=== PATIENT | male | born 1975 | race Caucasian/White ===

== ENCOUNTER 2016-04-17 18:10 | Inpatient (IN) | payer OTHER ==
[~2016-04-17] VITALS: Ht 172.7 cm; Wt 82.1 kg
[2016-04-17] MEDS ORDERED: ACETAMINOPHEN 325 MG TAB PO ONE ×2 (18:25→18:30)
[2016-04-17 18:55] LABS: Basophils # (auto) 0 uL; Basophils % (auto) 0.2 % (0.0-2.0); Eosinophils # (auto) 0 uL; Eosinophils % (auto) 0.2 % (0.0-7.0); Hematocrit 43.3 % (41.0-53.0); Hemoglobin 14.6 g/dL (13.5-17.5); Lymphocytes # (auto) 0.6 uL; Lymphocytes % (auto) 6.4 % (10.0-50.0); Mean Corpuscular Hemoglobin 30.2 pg (28.0-32.0); Mean Corpuscular Hgb Conc. 33.7 g/dL (32.0-36.0); Mean Corpuscular Volume 89.7 fL (80.0-100.0); Mean Platelet Volume 6.9 fL (7.4-10.4); Monocytes # (auto) 0.6 uL; Monocytes % (auto) 6.5 % (0.0-12.0); Neutrophils # (auto) 8.3 uL; Neutrophils % (auto) 86.7 % (37.0-80.0); Platelet Count (auto) 303 10^3/uL (140-450); White Blood Cell 9.6 10^3/uL (4.4-10.8)
[2016-04-17 19:13] LABS: Albumin 4.4 g/dL (3.4-5.0); BUN/Creatinine Ratio 15.2; Bilirubin, Total 0.4 mg/dL (0.2-1.0); Calcium 9.3 mg/dL (8.5-10.1); Potassium 3.8 mmol/L (3.5-5.1); Total Protein 7.9 g/dL (6.4-8.2)
[2016-04-17] MEDS ORDERED: LEVOFLOXACIN 500MG 100 ML IV ONE (19:15)
[2016-04-17] MEDS ORDERED: SODIUM CHLORIDE 0.9% 500 ML IV ONE (19:15)
[2016-04-17] MEDS ORDERED: methylPREDNISolone SOD SUCC 125 MG/2 ML VL IV ONE (19:15)
[2016-04-17] MEDS: SODIUM CHLORIDE 0.9% 1,000 ML IV SCH (19:50)
[2016-04-17] MEDS ORDERED: MORPHINE SULF INJ 2 MG/ML SYRINGE 1ML IV PRN ×2 (20:00)
[2016-04-17] MEDS ORDERED: LORazepam 0.5 MG TAB PO PRN (20:00)
[2016-04-17] MEDS ORDERED: ALBUTEROL SULF 2.5 MG/0.5ML(0.5%) NEB SOLN NEB PRN (20:00)
[2016-04-17] MEDS ORDERED: HYDROcodone-ACET 5/325MG TAB PO PRN (20:00)
[2016-04-17] MEDS ORDERED: LACTULOSE 20Gm/30ML SOLN PO PRN (20:00)
[2016-04-17] MEDS ORDERED: TEMAZEPAM 15 MG CAP PO PRN (20:00)
[2016-04-17] MEDS ORDERED: PROMETHAZINE HCL 25 MG/ML 1ML IV PRN (20:00)
[2016-04-17] MEDS ORDERED: NITROGLYCERIN 0.4 MG SL TAB SL PRN (20:00)
[2016-04-17] MEDS ORDERED: ACETAMINOPHEN 500 MG TAB PO PRN (20:00)
[2016-04-17 20:03] LABS: REFLEX LACTIC ACID YES OR NO YES
[2016-04-17] MEDS ORDERED: OSELTAMIVIR 75 MG CAP PO ONE (20:15)
[2016-04-17] MEDS: ENOXAPARIN SOD 40 MG/0.4 ML SYRINGE SC SCH (21:08)
[2016-04-17 21:58] VITALS: BP 133/76
[2016-04-17 22:00] VITALS: BP 128/69
[2016-04-17] MEDS: CLINDAMYCIN 600MG IV 50 ML IV SCH (23:19)
[2016-04-17] MEDS: IPRATROPIUM BROM 0.5 MG/2.5ML INH SOL NEB SCH (23:47)
[2016-04-17] MEDS: ALBUTEROL SULF 2.5 MG/0.5ML(0.5%) NEB SOLN NEB SCH (23:47)
[2016-04-18] MEDS ORDERED: methylPREDNISolone SOD SUCC 40 MG/ML VL IV SCH
[2016-04-18] MEDS: SODIUM CHLORIDE 0.9% 1,000 ML IV SCH ×3 (03:27→20:00)
[2016-04-18] MEDS: CLINDAMYCIN 600MG IV 50 ML IV SCH (05:42)
[2016-04-18 06:00] VITALS: BP 116/73
[2016-04-18] MEDS: IPRATROPIUM BROM 0.5 MG/2.5ML INH SOL NEB SCH ×4 (06:17→23:52)
[2016-04-18] MEDS: ALBUTEROL SULF 2.5 MG/0.5ML(0.5%) NEB SOLN NEB SCH ×4 (06:17→23:54)
[2016-04-18 07:02] LABS: Basophils # (auto) 0 uL; Basophils % (auto) 0.2 % (0.0-2.0); Eosinophils # (auto) 0 uL; Hemoglobin 13.9 g/dL (13.5-17.5); Lymphocytes # (auto) 0.9 uL; Lymphocytes % (auto) 9.6 % (10.0-50.0); Mean Corpuscular Hemoglobin 30.5 pg (28.0-32.0); Mean Corpuscular Hgb Conc. 33.9 g/dL (32.0-36.0); Mean Corpuscular Volume 90.1 fL (80.0-100.0); Mean Platelet Volume 7.1 fL (7.4-10.4); Monocytes # (auto) 0.1 uL; Monocytes % (auto) 1.5 % (0.0-12.0); Neutrophils % (auto) 88.7 % (37.0-80.0); Platelet Count (auto) 290 10^3/uL (140-450); Red Cell Distribution Width 12.9 % (11.6-16.0); White Blood Cell 9.1 10^3/uL (4.4-10.8)
[2016-04-18 07:22] LABS: Albumin 3.6 g/dL (3.4-5.0); BUN/Creatinine Ratio 14.4; Bilirubin, Total 0.3 mg/dL (0.2-1.0); Calcium 8.4 mg/dL (8.5-10.1); Potassium 3.8 mmol/L (3.5-5.1); Total Protein 7.2 g/dL (6.4-8.2)
[2016-04-18 07:53] VITALS: BP 129/81
[2016-04-18] MEDS: cefTRIAXone 1GM/50ML D5W 50 ML IV SCH (10:16)
[2016-04-18] MEDS: ENOXAPARIN SOD 40 MG/0.4 ML SYRINGE SC SCH (10:17)
[2016-04-18] MEDS: AZITHROMYCIN 500MG/D5W 250ML 250 ML IV SCH (11:31)
[2016-04-18] MEDS: OSELTAMIVIR 75 MG CAP PO SCH ×2 (11:31→21:29)
[2016-04-18 13:41] VITALS: BP 128/77
[2016-04-18 16:58] VITALS: BP 127/69
[2016-04-18 22:00] VITALS: BP 119/76
[2016-04-19 05:21] VITALS: BP 119/67
[2016-04-19] MEDS: ALBUTEROL SULF 2.5 MG/0.5ML(0.5%) NEB SOLN NEB SCH ×2 (06:40→12:07)
[2016-04-19] MEDS: IPRATROPIUM BROM 0.5 MG/2.5ML INH SOL NEB SCH ×2 (06:40→12:07)
[2016-04-19 09:00] VITALS: BP 118/71
[2016-04-19] MEDS: cefTRIAXone 1GM/50ML D5W 50 ML IV SCH (09:18)
[2016-04-19] MEDS: ENOXAPARIN SOD 40 MG/0.4 ML SYRINGE SC SCH (10:01)
[2016-04-19] MEDS: OSELTAMIVIR 75 MG CAP PO SCH (10:01)
[2016-04-19] MEDS ORDERED: TAMIFLU PO (10:55)
[2016-04-19] MEDS ORDERED: LEVO750T3 PO (10:55)
[2016-04-19 11:34] VITALS: BP 118/71
[2016-04-19 13:00] VITALS: BP 119/77
[2016-04-19] MEDS: AZITHROMYCIN 500MG/D5W 250ML 250 ML IV SCH (13:32)
== END 2016-04-19 13:25 | disposition home or self-care (01) | DRG 871 ==
LOC: ER 18:10 → TELE 18:11 → TELE-CENTR 21:43
PROVIDERS: ADMIT Internal Medicine; ATTEND Internal Medicine
DX: A41.9 Sepsis, unspecified organism (principal); J18.9 Pneumonia, unspecified organism; J10.00 Influenza due to other identified influenza virus with unspecified type of pneumonia; J45.909 Unspecified asthma, uncomplicated; Z90.49 Acquired absence of other specified parts of digestive tract; Z98.890 Other specified postprocedural states; Z90.79 Acquired absence of other genital organ(s)
CPT/HCPCS: 36415; 71010; 71020; 80053; 83605; 85025; 85049; 87040; 87070; 87205; 87400; 93005; 94640; 94761; 96365; 96375; J0696; J1956; J3490